=== PATIENT | male | born 1955 | race Caucasian/White ===

== ENCOUNTER 2016-11-25 06:04 | Day surgery (SDC) | payer OTHER ==
[~2016-11-25] VITALS: Ht 172.7 cm; Wt 68.5 kg
[2016-11-25 07:08] VITALS: BP 166/95
[2016-11-25] MEDS ORDERED: MIDAZOLAM 1 MG/ML, 5ML ONE (08:09)
[2016-11-25] MEDS ORDERED: FENTANYL PF 100 MCG/2ML ONE (08:09)
[2016-11-25] MEDS ORDERED: NALOXONE 1 MG/ML, 2ML ONE (08:10)
[2016-11-25] MEDS ORDERED: FLUMAZENIL 0.1 MG/1 ML, 5ML ONE (08:10)
== END 2016-11-25 10:20 | disposition home or self-care (01) ==
LOC: OUT 06:04
PROVIDERS: ATTEND Internal Medicine Nephrology
DX: I12.0 Hypertensive chronic kidney disease with stage 5 chronic kidney disease or end stage renal disease (principal); N18.5 Chronic kidney disease, stage 5; Z98.890 Other specified postprocedural states; N25.81 Secondary hyperparathyroidism of renal origin; Z87.891 Personal history of nicotine dependence; D63.1 Anemia in chronic kidney disease; Z87.01 Personal history of pneumonia (recurrent)
CPT/HCPCS: 36415; 50200; 77012; 85610; 88300; 88329; 99156; 99157; J2250; J3010; J2310

== ENCOUNTER 2018-07-19 10:23 | Day surgery (SDC) | payer MEDICARE ==
[~2018-07-19] VITALS: Ht 172.7 cm; Wt 69.2 kg
[~2018-07-19 10:23] MED LIST: FURO20TA3 PO; METO25TA35 PO; PRED20TA PO; ZOLP-413 PO
[2018-07-19] MEDS ORDERED: HEPARIN 1,000 UNITS/ML, 10ML ONE (10:51)
[2018-07-19] MEDS ORDERED: SODIUM CHLORIDE 0.9% 1,000 ML IV SCH (11:14)
[2018-07-19] MEDS ORDERED: GABA300C10 PO (11:26)
[2018-07-19] MEDS ORDERED: SUCR500T PO (11:26)
[2018-07-19] MEDS ORDERED: FOLI1CAP4 PO (11:26)
[2018-07-19] MEDS ORDERED: SEVE800T8 PO (11:26)
[2018-07-19] MEDS ORDERED: AMLO10TA8 PO (11:26)
[2018-07-19 11:27] VITALS: BP 170/96
[2018-07-19] MEDS ORDERED: PLEASE ENTER HEIGHT AND WEIGHT MC SCH (11:30)
[2018-07-19] MEDS ORDERED: ONDANSETRON 2MG/ML, 2ML IV PRN (13:30)
[2018-07-19] MEDS ORDERED: hydrALAzine 20 MG/ML, 1ML IV PRN (13:30)
[2018-07-19] MEDS ORDERED: PROMETHAZINE 25 MG/ML, 1ML IV PRN (13:30)
[2018-07-19] MEDS ORDERED: HYDROmorphone 2 MG/ML, 1ML IVPush PRN (13:30)
[2018-07-19] MEDS ORDERED: PROMETHAZINE 12.5 MG SUPP PR PRN (13:30)
[2018-07-19] MEDS ORDERED: OXYcodone 5 MG/5 ML ORAL.SOL UDC PO PRN (13:30)
[2018-07-19] MEDS ORDERED: PROMETHAZINE 25 MG SUPP PR PRN (13:30)
[2018-07-19] MEDS ORDERED: ONDANSETRON ODT 8 MG PO PRN (13:30)
[2018-07-19] MEDS ORDERED: PROMETHAZINE 25 MG/ML, 1ML IM PRN ×2 (13:30)
[2018-07-19] MEDS ORDERED: LABETALOL 5MG/ML, 20ML IV PRN (13:30)
[2018-07-19] MEDS ORDERED: FENTANYL PF 100 MCG/2ML IV PRN (13:30)
[2018-07-19] MEDS ORDERED: SODIUM CHLORIDE 0.9% PF 10ML ONE (13:32)
[2018-07-19] MEDS ORDERED: MIDAZOLAM 1 MG/ML, 2ML ONE (13:32)
[2018-07-19] MEDS ORDERED: CEFAZOLIN 1,000 MG ONE ×2 (13:32→13:33)
[2018-07-19] MEDS ORDERED: PROPOFOL 10 MG/ML, 20ML ONE (13:32)
[2018-07-19] MEDS ORDERED: FENTANYL PF 250 MCG/5ML ONE (13:32)
[2018-07-19] MEDS ORDERED: FENTANYL PF 100 MCG/2ML ONE (14:52)
[2018-07-19] MEDS ORDERED: OXYcodone 5 MG/5 ML ORAL.SOL UDC ONE (14:52)
== END 2018-07-19 17:00 | disposition home or self-care (01) ==
LOC: OUT 10:23
PROVIDERS: ATTEND Surgery Vascular Surgery
DX: T82.590A Other mechanical complication of surgically created arteriovenous fistula, initial encounter (principal); I12.0 Hypertensive chronic kidney disease with stage 5 chronic kidney disease or end stage renal disease; N18.6 End stage renal disease; Y83.8 Other surgical procedures as the cause of abnormal reaction of the patient, or of later complication, without mention of misadventure at the time of the procedure; Y92.89 Other specified places as the place of occurrence of the external cause
CPT/HCPCS: 36415; 36832; 80047; 93005; J0690; J1644; J2250; J2704; J3010